=== PATIENT | female | born 1940 | race Caucasian/White ===

== ENCOUNTER 2016-10-12 07:16 | Day surgery (SDC) | payer MEDICARE ==
[~2016-10-12 07:16] MED LIST: IV START KIT ONE; LACTATED RINGERS 1,000 ML ONE
[2016-10-12] MEDS ORDERED: LIDOCAINE 1% 2 ML VIAL ID PRN (07:20)
[2016-10-12] MEDS ORDERED: CLINDAMYCIN 600 MG PREMIX 600 MG in Premix (D5W) 50 ml 1 EACH IV PRN (07:20)
[2016-10-12] MEDS ORDERED: LACTATED RINGERS 1,000 ML IV SCH ×3 (07:30→11:24)
[2016-10-12] MEDS ORDERED: CLINDAMYCIN 600 MG PREMIX 50 ML IV ONE (07:38)
[2016-10-12] MEDS ORDERED: LIDOCAINE 2% (PRES FREE) 5 ML VIAL ONE (07:59)
[2016-10-12] MEDS ORDERED: METOCLOPRAMIDE HCL 5 MG/ML 2ML VIAL ONE (07:59)
[2016-10-12] MEDS ORDERED: DEXAMETHASONE SOD PHOS 4 MG/1 ML VIAL ONE (07:59)
[2016-10-12] MEDS ORDERED: PROPOFOL 20 ML IV ONE ×2 (07:59→10:02)
[2016-10-12] MEDS ORDERED: ONDANSETRON 4 MG/2ML 2 ML VIAL ONE (07:59)
[2016-10-12] MEDS ORDERED: KETAMINE HCL UD SYRINGE 100 MG/2 ML IV ONE (08:00)
[2016-10-12] MEDS ORDERED: MIDAZOLAM HCL 1 MG/ML 2ML VIAL ONE (08:00)
[2016-10-12] MEDS ORDERED: FENTANYL 250 MCG/5 ML AMP ONE (08:00)
[2016-10-12] MEDS ORDERED: CEFAZOLIN SODIUM 1,000 MG VIAL ONE (09:08)
[2016-10-12] MEDS ORDERED: MINERAL OIL 25 ML BOT ONE (09:08)
[2016-10-12] MEDS ORDERED: SODIUM CHLORIDE 0.9% FLUSH 0 ML ONE (09:08)
[2016-10-12] MEDS ORDERED: LIDOCAINE 1% (PRES FREE) 30 ML VIAL ONE (09:08)
[2016-10-12] MEDS ORDERED: PROMETHAZINE HCL 25 MG/ML VIAL IM PRN (09:37)
[2016-10-12] MEDS ORDERED: ONDANSETRON 4 MG/2ML 2 ML VIAL IV PRN ×2 (09:37→11:24)
[2016-10-12] MEDS ORDERED: ATROPINE SULFATE 0.4 MG/1 ML VIAL IV PRN (09:37)
[2016-10-12] MEDS ORDERED: HYDROMORPHONE HCL 1 MG/ML SYRINGE IV PRN ×2 (09:37→11:24)
[2016-10-12] MEDS ORDERED: NALOXONE HCL 0.4 MG/ML VIAL IV PRN (09:37)
[2016-10-12] MEDS ORDERED: FENTANYL 100 MCG/2 ML VIAL IV PRN (09:37)
[2016-10-12] MEDS ORDERED: LIDOCAINE 1%/EPI 1:100,000 (MULTI DOSE) 30 ML VIAL ONE (09:49)
[2016-10-12] MEDS ORDERED: EPHEDRINE SULFATE UD SYR 25 MG 25 MG/5 ML SYRINGE IV ONE (10:01)
--- NOTE | 2016-10-12 11:08 | PCMBPN ---
Brief Post Op Note: Date of Procedure: 10/12/16 Preoperative Diagnosis: 1. Left Calf hematoma with skin breakdown Postoperative Diagnosis: 1. Same Procedure: Left calf skin graft, left thigh donor Surgeon: Kate Power MD Assist:Melina Antoine Anesthesia: GETA Findings: see dictation Condition: stable Complications: none IV Fluids: see anesthesia report Urine Output: not recorded Estimated Blood Loss: 25 mLs Tourniquet Time: N/A Specimens: N/A Implants: n/a Drains: [N/A]
[2016-10-12] MEDS ORDERED: OXYCODONE/ACETAMINOPHEN 5/325 MG TABLET PO PRN (11:24)
[2016-10-12] MEDS ORDERED: HYDROMORPHONE HCL 0.5 MG/0.5 ML SYRINGE ONE (11:46)
[2016-10-12] MEDS ORDERED: OXYCODONE/ACETAMINOPHEN 5/325 MG TABLET ONE (12:40)
--- NOTE | 2016-10-13 10:45 | OP ---
HELEN MENDEZ [id number] : 1940 DATE OF SERVICE: October 12, 2016 PREOPERATIVE DIAGNOSIS: Left lower extremity skin necrosis. POSTOPERATIVE DIAGNOSIS: Left lower extremity skin necrosis. PROCEDURE PERFORMED: SKIN GRAFTING LEFT LOWER LEG WITH VAC PLACEMENT. SURGEON: Kate Power M.D. TECHNIQUE: The patient was brought back to the operating room and placed under general anesthesia. The left leg was prepped and draped in sterile surgical fashion, in a way that we could move it freely. The left thigh laterally had the graft taken form it. First we measured the recipient area and it was 8.5 cm by 5.5 cm for the larger area and the smaller area was 3.5 cm x 2.5 cm. So we decided to cut a 6 cm long section that was about 4 cm wide, and then we would mesh it on the 1.5 to 1 and then with that I calculated we would likely be able to cover both the areas. So I marked out 6 cm on the skin and then I used the Dermatome at a depth of 14 and removed the skin. I did get a little shallow on the lateral side but mostly had a really good graft taken. After that was done, I took lidocaine with epinephrine soaked lap and placed that over the donor site. Then I placed the skin graft on the 1.5 to 1 mesh spread it out so it was 1 layer thick without any rolling and then I sent it through the mesher. I then placed it across the larger of the two areas to cover, spread it out and then used some scissors to cut off the excess. A larger of the excess was about the perfect size to go on the smaller lesion, so I cut that and placed it over the smaller lesion. I then used #2-0 Chromic to tie it onto the skin all the way around, so I had a nice fit where it just laid perfectly on the tissue bed that was nice and beefy red so it was not sitting too tight and it was lying nicely on the tissue bed without excess. I cut off all the extra around the edges and made sure that both pieces were in good position. Once they were sutured down, it took the screened membrane to place over both lesions and the bridge between them. Then I placed black foam over the top of that and placed the VAC dressing plastic over that and set the suction at [address] it would hold suction for five days and she would go to STEPS for removal. A Mepilex dressing was placed over the donor site. Then the patient was awakened and returned to recovery room in stable condition. All needle, instrument and sponge counts were correct at the end of the case.
== END 2016-10-12 13:27 | disposition home or self-care (01) ==
LOC: SDC 07:16
PROVIDERS: ATTEND Surgery
PROC: 0HRLX73 Replacement of Left Lower Leg Skin with Autologous Tissue Substitute, Full Thickness, External Approach (ICD-10-PCS; principal; 2016-10-12)
DX: I96 Gangrene, not elsewhere classified (principal); I10 Essential (primary) hypertension; K21.9 Gastro-esophageal reflux disease without esophagitis; E78.00 Pure hypercholesterolemia, unspecified; E03.9 Hypothyroidism, unspecified; E66.9 Obesity, unspecified; I49.5 Sick sinus syndrome; Z95.0 Presence of cardiac pacemaker; Z88.0 Allergy status to penicillin; Z88.2 Allergy status to sulfonamides; Z87.891 Personal history of nicotine dependence; Z80.3 Family history of malignant neoplasm of breast; Z80.42 Family history of malignant neoplasm of prostate; Z79.899 Other long term (current) drug therapy
CPT/HCPCS: 15220; 15221 ×2; J3010; J1100; A9270 ×2; J2765; J2250; J2001; J2405; J7120; J1170